=== PATIENT | female | born 1985 | race American Indian/Alaskan Native ===

== ENCOUNTER 2017-02-24 09:54 | Inpatient (IN) | payer OTHER ==
[~2017-02-24] VITALS: Ht 160 cm; Wt 70.8 kg
[2017-02-25] MEDS ORDERED: PRENATAL 19 TA1 EACH PO (13:43)
== END 2017-03-02 15:22 | disposition home or self-care (01) | DRG 778 ==
LOC: OBS/DEL 09:54 → LDR 02-25 10:02 → OB/GYN 02-25 10:02 → LDR 02-27 15:04 → OB/GYN 02-27 15:04
PROC: 4A1HXCZ Monitoring of Products of Conception, Cardiac Rate, External Approach (ICD-10-PCS; principal; 2017-02-25)
DX: O60.03 Preterm labor without delivery, third trimester (principal); Z3A.34 34 weeks gestation of pregnancy

== ENCOUNTER 2017-03-24 02:44 | Inpatient (IN) | payer OTHER ==
[~2017-03-24] VITALS: Ht 160 cm; Wt 74.8 kg
[~2017-03-24 02:44] MED LIST: PRENATAL 19 TA1 EACH PO
== END 2017-03-26 16:27 | DRG 775 ==
LOC: LDR 02:44 → OB/GYN 02:44
PROC: 10E0XZZ Delivery of Products of Conception, External Approach (ICD-10-PCS; principal; 2017-03-24)
PROC: 4A1HXCZ Monitoring of Products of Conception, Cardiac Rate, External Approach (ICD-10-PCS; 2017-03-24)
DX: O80 Encounter for full-term uncomplicated delivery (principal); Z37.0 Single live birth; Z3A.38 38 weeks gestation of pregnancy